=== PATIENT | female | born 1970 ===

== ENCOUNTER → 2019-04-12 | Outpatient (CLI) | payer OTHER ==
--- NOTE | 2019-04-12 10:26 | RADIOLOGY IMAGING REPORT ---
FACILITY: [facility] [place] PATIENT NAME: Denise Williamson : 1970 MR: [id number] V: [id number] EXAM DATE: ORDERING PHYSICIAN: LINDA PINEDA TECHNOLOGIST: Location: [facility] Patient: Denise Williamson : 1970 Visit/Account:[id number] Date of Sevice: 04/12/2019 EXAMINATION: Ultrasound pelvis transabdominal and transvaginal with Doppler evaluation HISTORY: Uterine enlargement. COMPARISON: None. FINDINGS: Uterus: Anteverted and measures 7 x 4.1 x 5 cm in longitudinal by AP by transverse. Possible cesarea n section scar is present in the lower uterine segment anteriorly. Myometrium: Diffusely heterogeneous in echotexture, with somewhat bulbous morphology. This may limit assessment for intrauterine fibroid. Endometrium: Echogenic. The endometrial complex measures 4 mm in thickness. Cervix: Several small nabothian cysts are present. Ovaries: Right ovary 2.1 x 1.5 x 1.9 cm, left ovary 4.1 x 2.4 x 2.8 cm. A dominant simple left ovari an cyst of 3.5 x 2.6 x 3.3 cm is present. Blood flow is documented in each ovary by color and spectral Doppler ultrasound. Adnexa: Normal. Free pelvic fluid: None. IMPRESSION: 1. Heterogeneous and somewhat bulbous appearing uterus is nonspecific, but can be seen in the settin g of adenomyosis. Alternatively, myometrial heterogeneity may obscure visualization of small fibroid s. If further imaging is required, consider pelvic MRI. 2. Simple left ovarian cyst of 3.5 cm. Report Dictated By: Cookie Bray MD at 04/12/2019 10:16 AM Report E-Signed By: Cookie Bray MD at 04/12/2019 10:19 AM WSN:[email or web address]
== END ==
LOC: US 01:42
PROVIDERS: ATTEND Family Medicine
DX: N83.202 Unspecified ovarian cyst, left side (principal)
CPT/HCPCS: 76856

== ENCOUNTER → 2019-05-23 | Outpatient (CLI) | payer OTHER ==
--- NOTE | 2019-05-24 09:31 | RADIOLOGY IMAGING REPORT ---
FACILITY: [facility] [place] PATIENT NAME: CHELLY CASTANEDA : [id number] MR: [id number] V: [id number] EXAM DATE: ORDERING PHYSICIAN: LINDA PINEDA TECHNOLOGIST: Shalonda Howard PROCEDURE: BILATERAL DIGITAL SCREENING MAMMOGRAM WITH CAD ASSISTED INTERPRETATION & 3D TOMOSYNTHESIS REASON FOR STUDY: Screening. FAMILY HISTORY OF BREAST CANCER: Paternal grandmother and great grandmother. BREAST PROCEDURES/TREATMENTS: None. COMPARISON: None. VIEWS OBTAINED: Bilateral 2D & 3D full field CC & MLO projections. BREAST DENSITY: The breasts are heterogeneously dense which can obscure small masses. MAMMOGRAM FINDINGS: In the 3 o'clock position of the Right breast there is a circumscribed ovoid mass for which Right breast Ultrasound is recommended. There are scattered round calcifications in the upper outer quadrant of the Right breast. Scattered round calcifications also identified in the upper outer quadrant of the Left breast. IMPRESSION: BIRADS 0: Incomplete. Right breast Ultrasound is recommended as described above. DIAGNOSTIC CATEGORY 0--INCOMPLETE: NEED ADDITIONAL IMAGING EVALUATION. RECOMMENDATIONS: ULTRASOUND: RIGHT BREAST. Dictated by: Jaquelin Hurt M.D. on 05/23/2019 at 16:42 Transcribed by: RIGO on 05/24/2019 at 8:11 Approved by: Jaquelin Hurt M.D. on 05/24/2019 at 9:27 [facility]
== END ==
LOC: MAMO 00:45
PROVIDERS: ATTEND Family Medicine
DX: Z12.31 Encounter for screening mammogram for malignant neoplasm of breast (principal); Z80.3 Family history of malignant neoplasm of breast
CPT/HCPCS: 77063; 77067

== ENCOUNTER → 2019-06-03 | Outpatient (CLI) | payer OTHER ==
--- NOTE | 2019-06-04 09:06 | RADIOLOGY IMAGING REPORT ---
[place] [facility] [place] NAME: CHELLY CASTANEDA : [id number] MR: [id number] V: [id number] EXAM DATE: ORDERING PHYSICIAN: LINDA PINEDA TECHNOLOGIST: Izabella Lanza RT(R)(CT) PROCEDURE:US RIGHT BREAST COMPARISON:Prior mammogram 05/23/19. INDICATIONS:Further Evaluation. AREAS SCANNED: The 12-3 & 4 o'clock positions of the Right breast. FINDINGS: In the 3 o'clock position of the Right breast in the periareolar region there is a grouping of dilated ducts. In the 2 o'clock position 3cm from the nipple there is a 1.2 x 1.1 x 0.8cm circumscribed ovoid hypoechoic mass. There may be a small amount of acoustic enhancement. Given the solid nature however Ultrasound guided core biopsy is recommended. DIAGNOSTIC CATEGORY 4--SUSPICIOUS FOR MALIGNANCY. RECOMMENDATIONS: ULTRASOUND-GUIDED CORE BIOPSY: RIGHT BREAST. IMPRESSION: BIRADS 4: Suspicious for malignancy. Ultrasound guided core biopsy of the solid hypoechoic mass 2 o'clock position of the Right breast recommended. Dictated by: Jaquelin Hurt M.D. on 06/03/2019 at 15:24 Transcribed by: RIGO on 06/04/2019 at 7:52 Approved by: Jaquelin Hurt M.D. on 06/04/2019 at 9:01 [facility]
== END ==
LOC: US 02:48
PROVIDERS: ATTEND Family Medicine
DX: R92.8 Other abnormal and inconclusive findings on diagnostic imaging of breast (principal)

== ENCOUNTER → 2019-06-11 | Outpatient (CLI) | payer OTHER ==
[2019-06-11 13:04] LABS: INR 0.97
== END ==
LOC: LAB 12:25
PROVIDERS: ATTEND Family Medicine
DX: Z01.812 Encounter for preprocedural laboratory examination (principal); N63.10 Unspecified lump in the right breast, unspecified quadrant
CPT/HCPCS: 36415; 85610; 85730

== ENCOUNTER → 2019-06-12 | Outpatient (CLI) | payer OTHER ==
--- NOTE | 2019-06-12 15:18 | RADIOLOGY IMAGING REPORT ---
FACILITY: [facility] PATIENT NAME: CHELLY CASTANEDA : [id number] MR: [id number] V: [id number] EXAM DATE: [id number] ORDERING PHYSICIAN: LINDA PINEDA TECHNOLOGIST: Izabella Lanza RT(R)(CT) PROCEDURE: ULTRASOUND GUIDED RIGHT BREAST CORE BIOPSY WITH DEBORA CLIP REPLACEMENT. RIGHT BREAST 2D POST BIOPSY CLIP PLACEMENT MAMMOGRAM. COMPARISON: Diagnostic Ultrasound 06/03/19. INDICATIONS: RIGHT BREAST MASS. FINDINGS: The technologist localized the 1.2cm rounded 2 o'clock Right breast mass and also identified a second 6mm similar round solid mass 2cm from the nipple in the 2 o'clock area. This mass may have a punctuate calcification in the anterior aspect. Given the two similar masses, the possibility of multiple fibroadenomas was discussed with the patient before the biopsy. We discussed options of 6 month follow-up Ultrasound verses biopsy. The patient was interested in preceding with the biopsy today but I felt it was reasonable to only biopsy the larger mass. The patient's skin was prepped and draped in the usual manner. Timeout was performed in the room by the technologist while I was present. Lidocaine was utilized for local anesthesia. The mass at 2 o'clock 3cm from the nipple was approached from the inferior aspect. Using a guiding canella needle and a 14 Gauge marquee core biopsy needle, 4 core samples were obtained through various portions of the mass. Tissue sampling appeared to be adequate. Under Ultrasound visualization a marker clip was deployed into the mass. Direct pressure was applied to insure that hemostat was achieved. No immediate compilations were noted. The core samples were placed in formalin for pathology evaluation. Subsequent 2 view biopsy clip with mammogram shows the clip in good position in the upper inner quadrant of the breast. IMPRESSION: Technically successful ultrasound guided core biopsy of the Right upper inner quadrant mass. Pathology is pending. If pathology is benign, 6 month follow-up Ultrasound of the second smaller mass closer to the nipple is recommended. Dictated by: Emmanuel Mcknight on 06/12/2019 at 13:21 Transcribed by: RIGO on 06/12/2019 at 14:17 Approved by: Emmanuel Mcknight on 06/12/2019 at 15:13 [facility]
== END ==
LOC: MAMO 00:45
PROVIDERS: ATTEND Family Medicine
DX: Z01.812 Encounter for preprocedural laboratory examination (principal); R92.8 Other abnormal and inconclusive findings on diagnostic imaging of breast; N63.12 Unspecified lump in the right breast, upper inner quadrant
CPT/HCPCS: 19083; 77061; 77065; 88305; 88344